=== PATIENT | male | born 1995 | race African-American/Black ===

== ENCOUNTER 2017-03-12 09:47 | Emergency (ER) | payer OTHER ==
[~2017-03-12] VITALS: Ht 182.9 cm; Wt 80.0 kg
[~2017-03-12 09:47] MED LIST: NOCURR
[2017-03-12] MEDS ORDERED: TraMADol HCL 50 MG TABLET PO ONE (13:15)
[2017-03-12 14:07] VITALS: BP 127/67
== END 2017-03-12 14:13 | disposition home or self-care (01) ==
LOC: EMS 09:48
DX: S93.402A Sprain of unspecified ligament of left ankle, initial encounter (principal); X50.1XXA Overexertion from prolonged static or awkward postures, initial encounter; Y93.67 Activity, basketball; Y92.89 Other specified places as the place of occurrence of the external cause; Y99.8 Other external cause status
CPT/HCPCS: 29515; 99284

== ENCOUNTER 2021-04-06 13:23 | Emergency (ER) | payer MEDICAID ==
[~2021-04-06] VITALS: Ht 177.8 cm; Wt 78.3 kg
[2021-04-06] MEDS ORDERED: CeFAZolin 1 GM/DEXTROSE 50 ML IV ONE (13:30)
[2021-04-06] MEDS ORDERED: PERTUSS(ACELL),DIPH,TET VAC/PF 0.5 ML SYRINGE IM. ONE (13:30)
[2021-04-06] MEDS ORDERED: SODIUM CHLORIDE 0.9% 1,000 ML IV ONE (13:30)
[2021-04-06 13:40] LABS: GLUCOSE,POINT OF CARE 82 MG/DL (70-110)
[2021-04-06 13:48] LABS: BASOPHILS % (AUTO) 0.5 % (0.0-2.0); EOSINOPHILS % (AUTO) 7.1 % (1.0-6.0); HEMATOCRIT 45.7 % (41-53); HEMOGLOBIN 14.7 g/dL (13.5-17.5); LYMPHOCYTES # (AUTO) 3.3 K/uL (1.0-4.8); LYMPHOCYTES % (AUTO) 55.3 % (22.0-44.0); MEAN CORPUSCULAR HEMOGLOBIN 27.3 pg (26.0-34.0); MEAN CORPUSCULAR HGB CONC 32.2 G/dL (31.0-37.0); MEAN CORPUSCULAR VOLUME 85 fL (80-100); MONOCYTES # (AUTO) 0.5 K/uL (0.1-1.0); MONOCYTES % (AUTO) 8.7 % (2.0-9.0); NEUTROPHILS # (AUTO) 1.7 K/uL (1.8-7.7); NEUTROPHILS % (AUTO) 28.4 % (40.0-70.0); PLATELET COUNT (AUTO) 277 K/uL (150-450); RED BLOOD CELL COUNT(AUTO) 5.38 MIL/uL (4.50-5.90); RED CELL DISTRIBUTION WIDTH 13.5 % (11.5-14.5)
[2021-04-06] MEDS ORDERED: MORPHINE SULFATE 4 MG/ML SYRINGE IVP ONE (14:00)
[2021-04-06 14:05] LABS: ANION GAP 13 mmol/L (8-16); CALCIUM, TOTAL 8.3 mg/dL (8.8-10.5); CARBON DIOXIDE 24 mmol/L (22-29); CHLORIDE 102 mmol/L (98-107); CREATININE 1.15 mg/dL (0.60-1.30); GLOMERULAR FILTR. RATE CALC > 60 mL/min (>60); GLUCOSE,RANDOM 107 mg/dL (70-110); SODIUM SERUM 139 mmol/L (136-145); UREA NITROGEN, BLOOD 11 mg/dL (7-18)
[2021-04-06 14:10] LABS: ALANINE AMINOTRANSFERASE 24 U/L (12-78); ALBUMIN 4.1 g/dL (3.4-5.0); ALKALINE PHOSPHATASE 95 U/L (46-116); ASPARTATE AMINOTRANSFERASE 14 U/L (15-37); BILIRUBIN,TOTAL 0.4 mg/dL (0.1-1.0); TOTAL PROTEIN, SERUM 8.2 g/dL (6.4-8.2)
[2021-04-06 14:37] VITALS: BP 158/77
== END 2021-04-06 15:51 | disposition short-term general hospital (02) ==
LOC: EDBD 13:23 → EMS 13:23 → MERGE 13:23 → EMS 15:51
DX: S52.302B Unspecified fracture of shaft of left radius, initial encounter for open fracture type I or II (principal); S01.511A Laceration without foreign body of lip, initial encounter; W34.00XA Accidental discharge from unspecified firearms or gun, initial encounter; Y93.89 Activity, other specified; Y92.89 Other specified places as the place of occurrence of the external cause; Y99.8 Other external cause status
CPT/HCPCS: 36415; 71045; 73090; 80053; 82962; 85025; 86850; 86900; 86901; 90471; 90715; 96365; 96375; 99291; J0690; J2270; J7030

== ENCOUNTER 2025-04-18 22:11 | Emergency (ER) | payer MEDICAID ==
[~2025-04-18] VITALS: Ht 185.4 cm; Wt 79.1 kg
[2025-04-18 22:33] VITALS: TEMP 97.8
[2025-04-18 23:00] VITALS: BP 145/87; PULSE 89; RESP 18; O2SAT 98
[2025-04-18] MEDS ORDERED: AMOX-457 PO (23:44)
[2025-04-18] MEDS: AMOX TR/POT CLAV 875 MG/125 MG TABLET PO ONE (23:45)
== END 2025-04-18 23:59 | disposition home or self-care (01) ==
LOC: EMS 22:24
DX: S71.151A Open bite, right thigh, initial encounter (principal); W54.0XXA Bitten by dog, initial encounter; Y93.89 Activity, other specified; Y92.89 Other specified places as the place of occurrence of the external cause; Y99.8 Other external cause status
CPT/HCPCS: 99283